=== PATIENT | male | born 1980 | race Caucasian/White ===

== ENCOUNTER 2017-03-04 04:07 | Emergency (ER) | payer BC ==
[2017-03-04 04:31] VITALS: BP 107/81
--- NOTE | 2017-03-04 04:48 | EDM.PDOC ---
ED HPI GENERAL MEDICAL PROBLEM - General Chief Complaint: General Stated Complaint: SORE LEFT CHEST Time Seen by Provider: 03/04/17 04:39 Source of Information: Reports: Patient History Limitations: Reports: No Limitations - History of Present Illness INITIAL COMMENTS - FREE TEXT/NARRATIVE: This patient complains of pain in the area of the sternum. He thinks it might be associated with his port. It's been going on for one day. It's worse when he reaches overhead. Sometimes it's a sharp pulling type sensation he points to the left sternal border and it's the worst place. He denies any fever there is no cough. The port hasn't been used for a couple of weeks. No history of any trauma Left Chest Pain Score (Numeric/FACES): 4 - Related Data Allergies Allergy/AdvReac Type Severity Reaction Status Date / Time No Known Allergies Allergy Verified 03/04/17 04:19 Home Meds: Home Meds Vedolizumab [Entyvio] 300 mg IV ASDIRECTED 02/09/15 [History] Gabapentin 6 ml PO TID 03/04/17 [History] Medical Cannibus 3 - 4 puff INH Q2H PRN 03/04/17 [History] busPIRone [Buspar] 5 mg PO TID 03/04/17 [History] cloNIDine [cloNIDine HCl] 0.2 mg PO TID 03/04/17 [History] Past Medical History Gastrointestinal History: Reports: Bowel Obstruction, Chronic Diarrhea Other Gastrointestinal History: Crohn's. Bowel obstructions multiple times Psychiatric History: Reports: Depression Endocrine/Metabolic History: Reports: Vitamin D Deficiency Hematologic History: Reports: Anemia, Blood Transfusion(s), Iron Deficiency Immunologic History: Reports: Immunosuppression - Infectious Disease History Infectious Disease History: Reports: Chicken Pox - Past Surgical History Other Cardiovascular Surgeries/Procedures: port GI Surgical History: Reports: Appendectomy, Cholecystectomy, Other (See Below) Social & Family History - Family History Cardiac: Reports: [place], Stent GI: Reports: Other (See Below) Other GI Family History: crohns Musculoskeletal: Reports: Arthritis, Fibromyalgia Endocrine/Metabolic: Reports: Diabetes, type II - Tobacco Use Smoking Status *Q: Current Every Day Smoker Years of Tobacco use: 20 Packs/Tins Daily: 0.5 Used Tobacco, but Quit: No Month Tobacco Last Used: february Second Hand Smoke Exposure: No - Caffeine Use Caffeine Use: Reports: Coffee, Soda - Alcohol Use Days Per Week of Alcohol Use: 0 - Recreational Drug Use Recreational Drug Use: No Recreational Drug Type: Reports: Marijuana/Hashish - Living Situation & Occupation Living situation: Reports: , with Spouse, with Family Occupation: Employed ED ROS GENERAL - Review of Systems Review Of Systems: ROS reveals no pertinent complaints other than HPI. ED EXAM, GENERAL - Physical Exam Exam: See Below Exam Limited By: No Limitations General Appearance: Alert, WD/WN Respiratory/Chest: Lungs Clear, Other (There is tenderness along the left sternal border consistent with costochondritis. The area around the port appears to be normal.) Cardiovascular: Normal Peripheral Pulses, Regular Rate, Rhythm Course - Vital Signs Last Recorded V/S: Last Vital Signs Temp 36.1 C 03/04/17 04:31 Pulse 94 03/04/17 04:31 Resp 16 03/04/17 04:31 BP 107/81 03/04/17 04:31 Pulse Ox 96 03/04/17 04:31 Departure - Departure Time of Disposition: 04:46 Disposition: Home, Self-Care 01 Condition: Fair Clinical Impression: Costochondritis - Discharge Information Forms: ED Department Discharge Additional Instructions: You appear to have costochondritis which is inflammation where the cartilage in the bone joints along the left side of your sternum. This is pretty common. There is no specific cause of it although sometimes some minor trauma or exertion can start this. Generally will last a couple of weeks and will go away without treatment. Tylenol and ibuprofen which you can take simultaneously is frequently helpful. See your doctor if your not getting better or at anytime if you feel like you're getting worse.
== END 2017-03-04 05:06 | disposition home or self-care (01) ==
LOC: JP.ED 04:07
DX: M94.0 Chondrocostal junction syndrome [Tietze] (principal); F17.210 Nicotine dependence, cigarettes, uncomplicated; Z90.49 Acquired absence of other specified parts of digestive tract; E11.9 Type 2 diabetes mellitus without complications
CPT/HCPCS: 99283

== ENCOUNTER 2017-10-05 05:16 | Inpatient (IN) | payer BC ==
[2017-10-05] MEDS ORDERED: Celecoxib 200 MG Cap PO ONE (06:00)
[2017-10-05] MEDS ORDERED: Gabapentin 300 MG Cap PO ONE (06:00)
[2017-10-05] MEDS ORDERED: Gabapentin 250 MG/5 ML Solution ML 470 ML Bottle PO ONE (06:00)
[2017-10-05] MEDS ORDERED: Dextrose 5%-Lactated Ringers 1,000 ML IV SCH ×2 (06:00→10:45)
[2017-10-05] MEDS ORDERED: Acetaminophen 500 MG Tab PO ONE (06:00)
[2017-10-05] MEDS ORDERED: Scopolamine 1.5 MG Transdermal Patch TOP SCH (06:00)
[2017-10-05] MEDS ORDERED: Bupivacaine 0.5%/EPINEPHrine 1:200,000 50 ML MDV ONE (06:38)
[2017-10-05] MEDS ORDERED: Meropenem 500 MG SDV ONE (06:39)
[2017-10-05] MEDS ORDERED: Albuterol/Ipratropium 3.0-0.5 MG/3 ML Neb Soln NEB ONE (06:57)
[2017-10-05] MEDS ORDERED: Albuterol/Ipratropium 3.0-0.5 MG/3 ML Neb Soln ONE (07:00)
[2017-10-05] MEDS ORDERED: Propofol 200 MG/20 ML SDV ONE (07:11)
[2017-10-05] MEDS ORDERED: Succinylcholine/Normal Saline 200 MG/10 ML Syringe ONE (07:11)
[2017-10-05] MEDS ORDERED: Dexamethasone 4 MG/ML SDV ONE (07:11)
[2017-10-05] MEDS ORDERED: fentaNYL 250 MCG/5 ML SDV ONE ×2 (07:11→07:36)
[2017-10-05] MEDS ORDERED: Ondansetron 4 MG/2 ML SDV ONE (07:11)
[2017-10-05] MEDS ORDERED: Rocuronium 50 MG/5 ML Vial ONE ×2 (07:11→08:18)
[2017-10-05] MEDS ORDERED: Neostigmine Methylsulfate 1 MG/ML 5 ML Syringe ONE (07:11)
[2017-10-05] MEDS ORDERED: Lidocaine 4% Top Soln LTA 4 ML SYRINGE ONE (07:13)
[2017-10-05] MEDS ORDERED: cefOXitin 2 GM in Premix Bag 1 BAG IV ONE (07:15)
[2017-10-05] MEDS ORDERED: cefOXitin 2 GM in Sodium Chloride 0.9% 50 ML IV ONE (07:15)
[2017-10-05] MEDS ORDERED: Naloxone 0.4 MG/ML SDV IVPUSH PRN (07:23)
[2017-10-05] MEDS ORDERED: HYDROmorphone/Normal Saline 15 MG/30 ML PCA IV PRN (07:23)
[2017-10-05] MEDS ORDERED: Ketamine 500 MG/5 ML MDV IV SCH (07:30)
[2017-10-05] MEDS ORDERED: Ropivacaine 45 ML, Dexamethasone 8 MG, EPINEPHrine 0.4 MG, Sodium Chloride 0.9% 32.6 ML NERVRT SCH ×4 (07:30)
[2017-10-05] MEDS ORDERED: Lidocaine 0.4%/D5W 2 GM/500 ML BAG IV SCH (07:30)
[2017-10-05] MEDS ORDERED: Lidocaine 2% 100 MG/5 ML Syringe IVPUSH ONE (07:30)
[2017-10-05] MEDS ORDERED: Linezolid 200 MG/100 ML Bag IRR ONE (09:09)
[2017-10-05] MEDS ORDERED: hydrOXYzine HCl 100 MG/2 ML SDV IM ONE (09:30)
[2017-10-05] MEDS ORDERED: HYDROmorphone 2 MG Tab PO PRN (10:40)
[2017-10-05] MEDS ORDERED: Ondansetron 4 MG/2 ML SDV IV PRN (10:41)
[2017-10-05] MEDS: Acetaminophen 500 MG Tab PO SCH ×3 (11:51→23:08)
[2017-10-05] MEDS: hydrOXYzine HCl 25 MG Tab PO PRN ×3 (11:51→21:13)
[2017-10-05] MEDS ORDERED: hydrOXYzine HCl 100 MG/2 ML SDV IM PRN (12:00)
[2017-10-05] MEDS: Gabapentin 250 MG/5 ML Solution ML 470 ML Bottle PO SCH ×2 (13:39→20:03)
[2017-10-05] MEDS: ceFAZolin 2 GM in Sodium Chloride 0.9% 50 ML IV SCH ×2 (13:39→20:03)
[2017-10-05] MEDS: Cyclobenzaprine 10 MG Tab PO PRN ×2 (15:11→21:13)
[2017-10-05] MEDS ORDERED: VERIFY SCOP PATCH TOP SCH (16:00)
[2017-10-06] MEDS: Cyclobenzaprine 10 MG Tab PO PRN (04:27)
[2017-10-06] MEDS: hydrOXYzine HCl 25 MG Tab PO PRN (04:27)
[2017-10-06] MEDS: Acetaminophen 500 MG Tab PO SCH (05:47)
[2017-10-06 07:23] VITALS: BP 153/98
[2017-10-06] MEDS: ceFAZolin 2 GM in Sodium Chloride 0.9% 50 ML IV SCH (08:09)
[2017-10-06] MEDS ORDERED: Celecoxib 200 MG Cap PO SCH (09:00)
--- NOTE | 2017-10-07 17:00 | DISCH ---
FINAL DIAGNOSES: 1. Incarcerated umbilical hernia and non-incarcerated incisional hernia. 2. Extensive intra-abdominal adhesions. 3. History of Crohn disease, status post multiple bowel resections. OPERATIVE PROCEDURES: This was done on 10/05/2017, diagnostic laparoscopy with lysis of extensive adhesions and: 1. Repair of incarcerated umbilical and non-incarcerated incisional hernias with mesh. 2. Repair of area of deserosalization of small bowel. 3. Placement of Interceed mesh to displace small bowel from pelvic and abdominal wall to limit recurrent adhesion formation. HOSPITAL COURSE: This is a 37-year-old male with longstanding Crohn disease, who is status post 3 previous surgical procedures done at [facility] and presently status, distal small bowel resection with anastomosis to the descending colon with a colon proximal having been previously resected. He presented now with an increasingly symptomatic hernia in the umbilical area. After a preoperative evaluation and discussion, he wished to proceed with a repair and mesh. This was accomplished on the day of admission via laparoscopic approach. He had quite extensive small bowel adhesions along the previous incision line. These were carefully taken down with no enterotomies. There were some areas that were slightly deserosalized. These were reinforced with some sutures as well as fibrin sealant. The patient also, in addition to the umbilical hernia, had an incisional hernia located in the lower half of the incision, i.e. in the area inferior to the umbilicus. The entire of the incision and hernias were covered by the mesh. Clinically, he has done well and will be discharged home today. He will be continuing his standard Entyvio injections every 30 days for the Crohn disease. DISCHARGE MEDICATIONS: He will be discharged home today on; 1. Tylenol 1 gram q.i.d. x5 days and q.i.d. p.r.n. 2. Celebrex 200 mg p.o. daily x7 days, #7. 3. Atarax 100 mg p.o. q.6 hours p.r.n. pain or muscle spasm, #30, with refill x1. DISCHARGE INSTRUCTIONS: He will be instructed in terms of maintaining focussed pressure over the umbilical area during the next 2 weeks with an abdominal binder. FOLLOWUP: With Dr. London at [facility] on 10/17/2017.
--- NOTE | 2017-10-10 08:28 | OR ---
DATE OF PROCEDURE: 10/05/2017 PREOPERATIVE DIAGNOSIS: Umbilical hernia. POSTOPERATIVE DIAGNOSES: 1. Incarcerated umbilical hernia. 2. Incarcerated incisional hernia. 3. Extensive small bowel adhesions to abdominal wall with focal deserosalization of small bowel, status post takedown of adhesions. OPERATIVE PROCEDURES: Diagnostic laparoscopy with lysis of extensive adhesions: 1. Repair of incarcerated umbilical hernia with mesh (16183). 2. Repair of the incarcerated incisional hernia with mesh (92411). 3. Repair of deserosalization of small bowel (95732). 4. Placement of Interceed mesh to limit postoperative recurrent adhesion formation between pelvic and abdominal wall and the underlying small bowel (98270). ANESTHESIA: General. WET SUIT GLUER: Jenn Gordillo PA-C and DONNA Joy3. INDICATIONS FOR PROCEDURE: This is a 37-year-old presenting with increasingly symptomatic umbilical hernia located in the middle portion of the midline incision. The patient is status post nearly subtotal colectomy for Crohn disease with distal small bowel having been resected and the colon from the cecum to the descending colon have also been previously resected. Plan is to proceed with a laparoscopy, laparotomy if necessary, and repair of the hernia with mesh. Potential risks including bleeding, infection, injury to underlying viscera, problems with the mesh becoming infected or the hernia recurring along with remote possibility of cardiopulmonary, septic, or hemorrhagic complications leading to were discussed, and the patient wishes to proceed. DETAILS OF PROCEDURE: The patient was taken to the operating room. After general endotracheal anesthesia was induced, a Campa catheter was inserted. Initially, the abdominal wall was examined with ultrasound. Much of the abdominal wall had obvious some small bowel directly underlying it, however, in the left upper quadrant of some left subcostal area, there appeared to be no small bowel there and we therefore selected this site for the subsequent initial trocar placement. The abdomen was then prepped and draped. In the mid left subcostal area, a 12 mm trocar was then placed without difficulty and the peritoneal cavity inflated to 15 mmHg pressure with CO2. Eventually, three additional 5 mm trocars were placed, 1 in the epigastrium and 2 in the left mid and lower abdomen. The patient was noted to have a long roll of densely adherent small bowel from previous incision, for the most part a plane could be established between the small bowel and the abdominal wall at 2 points there was a small area of deserosalization pointing down the bowel and two other portions of these areas of adhesion takedown the underlying peritoneum and posterior rectus sheath were excised along with the attached underlying small bowel to allow displacement of the small bowel from the area of adhesions without dividing the bowel itself. Once this was all taken down which was fairly long tedious approach mostly with sharp dissection, the small bowel was inspected. Two areas of deserosalization were noted. These were reinforced with 3-0 Vicryl seromuscular stitch along with fibrin sealant. No omentum was available for placement over those areas. At that point, a Ventralight ST mesh was selected after measuring out the areas of herniation. The patient had some incarcerated preperitoneal fat within the umbilical hernia. This was excised. The patient also had a diffuse hernia along the lower aspect of the incision, which was not incarcerated. The Ventralight ST mesh measuring 15 x 25 cm was selected and at the long axis ends of the mesh, 2-0 Vicryl sutures were placed and the mesh was placed in the antibiotic-containing saline solution. The mesh was then rolled up and placed in intraperitoneal location at premarked locations. The sutures were then pulled up through the abdominal wall through small stab wounds with the long axis of the mesh being in the vertical midline. The balloon catheter was then pulled through additional stab wound over the mid portion of the mesh and the balloon catheter inflated pushing the mesh up against the abdominal wall. At that point, circumferential absorbable tacking screws were placed into the mesh and to the abdominal wall and once that was completed, one additional row of absorbable tacking screws were placed around the area of the umbilical hernia to affix the mesh in position at that level. The patient was felt to be at high risk for recurrent pelvic and abdominal adhesion formation with the mesh placement as well as the takedown of the previous adhesions and with history of Crohn disease, certainly risk for needing additional laparotomies over time, given this two segments of the Interceed mesh was placed underneath the mesh and from there into the pelvis, thus displacing the small bowel from the mesh in the pelvic guillen to limit recurrent adhesion formation. At that point, no further problems noted. The abdomen was irrigated with an antibiotic-containing saline solution and the trocars removed. The fascia at the 12 mm site was closed with 0 Vicryl stitch and skin with a 4-0 Vicryl skin stitch. Dressing was applied. The patient was taken to the recovery room in satisfactory condition. Physician retail assistant, Jenn Gordillo, played an essential role in assisting in this case, helping to position the patient, retract structures as needed, as well as suturing and cutting sutures when indicated. Her presence improved patient safety and decreased operative time. Jerrod London MD /[id number]
== END 2017-10-06 09:00 | disposition still patient (30) | DRG 227 ==
LOC: JP.SDS 05:16 → JP.MS 05:16 → EDSTATUS 08:30 → JP.MS 09:50
PROVIDERS: ADMIT Surgery; ATTEND Surgery
PROC: 0WUF4JZ Supplement Abdominal Wall with Synthetic Substitute, Percutaneous Endoscopic Approach (ICD-10-PCS; principal; 2017-10-05)
PROC: 3E0M45Z Introduction of Adhesion Barrier into Peritoneal Cavity, Percutaneous Endoscopic Approach (ICD-10-PCS; 2017-10-05)
PROC: 0WUF4JZ Supplement Abdominal Wall with Synthetic Substitute, Percutaneous Endoscopic Approach (ICD-10-PCS; 2017-10-05)
PROC: 0DN84ZZ Release Small Intestine, Percutaneous Endoscopic Approach (ICD-10-PCS; 2017-10-05)
DX: K42.0 Umbilical hernia with obstruction, without gangrene (principal); K43.2 Incisional hernia without obstruction or gangrene; K66.0 Peritoneal adhesions (postprocedural) (postinfection); Z90.49 Acquired absence of other specified parts of digestive tract; K50.90 Crohn's disease, unspecified, without complications
CPT/HCPCS: 36415; 80053; 83735; 84100; 85027; 88302; 94762; A9270-GY; C1781; J0171; J0690; J0694; J1100; J2001; J2020; J2185; J2405; J2704; J2795; J3010; J3410; J7030; J7042; J7050; J7620

== ENCOUNTER 2018-02-12 14:00 | Emergency (ER) | payer BC ==
[2018-02-12] MEDS ORDERED: Aspirin 81 MG Tab.Chew PO ONE (14:46)
--- NOTE | 2018-02-12 14:51 | EDM.PDOC ---
ED HPI GENERAL MEDICAL PROBLEM - General Chief Complaint: Chest Pain Stated Complaint: CHEST TIGHTNESS/SOB Time Seen by Provider: 02/12/18 14:40 Source of Information: Reports: Patient, RN Notes Reviewed History Limitations: Reports: No Limitations - History of Present Illness INITIAL COMMENTS - FREE TEXT/NARRATIVE: 38-year-old gentleman presents to the emergency department with complaint of chest pain, he states he's had pain for 24 hours it will wax and wane initially came on at rest does get with with exertion rates the pain 6 out of 10 when he rests it does resolve. Has shortness of breath no nausea vomiting no diaphoresis , past family history positive for father myocardial infarction age 42 and no personal history of dyslipidemia or hypertension Left Chest Pain Score (Numeric/FACES): 4 - Related Data Allergies Allergy/AdvReac Type Severity Reaction Status Date / Time No Known Allergies Allergy Verified 02/12/18 14:16 Home Meds: Home Meds Medical Cannibus 3 - 4 puff INH Q2H PRN 03/04/17 [History] Past Medical History Gastrointestinal History: Reports: Bowel Obstruction, Chronic Diarrhea Other Gastrointestinal History: Crohn's. Bowel obstructions multiple times Psychiatric History: Reports: Depression Endocrine/Metabolic History: Reports: Vitamin D Deficiency Hematologic History: Reports: Anemia, Blood Transfusion(s), Iron Deficiency Immunologic History: Reports: Immunosuppression - Infectious Disease History Infectious Disease History: Reports: Chicken Pox - Past Surgical History GI Surgical History: Reports: Appendectomy, Cholecystectomy, Hernia Repair/Other , Other (See Below) Social & Family History - Family History Family Medical History: Noncontributory Cardiac: Reports: [place], Stent GI: Reports: Other (See Below) Other GI Family History: crohns Musculoskeletal: Reports: Arthritis, Fibromyalgia Endocrine/Metabolic: Reports: Diabetes, type II - Tobacco Use Smoking Status *Q: Heavy Tobacco Smoker Years of Tobacco use: 20 Packs/Tins Daily: 1 - Caffeine Use Caffeine Use: Reports: Coffee, Energy Drinks - Alcohol Use Days Per Week of Alcohol Use: 2 Number of Drinks Per Day: 7 Total Drinks Per Week: 14 - Recreational Drug Use Recreational Drug Use: Yes - Living Situation & Occupation Living situation: Reports: , with Spouse, with Family Occupation: Employed ED ROS GENERAL - Review of Systems Review Of Systems: See Below Constitutional: Reports: No Symptoms HEENT: Reports: No Symptoms Respiratory: Reports: Shortness of Breath Cardiovascular: Reports: Chest Pain GI/Abdominal: Reports: No Symptoms : Reports: No Symptoms Musculoskeletal: Reports: No Symptoms Skin: Reports: No Symptoms ED EXAM, GENERAL - Physical Exam Exam: See Below Free Text/Narrative:: General: Male, not in any distress, alert and oriented x3 HEENT: head is atraumatic normocephalic, eyes pupils equal round reactive to light, sclera clear no conjunctivitis appreciated. Ears tympanic membranes clear and schafer landmarks and light reflex are present bilaterally canals are clear. Nose no septal deviation, nares are clear, no blood present. Mouth mucosa is moist and pink no erythema or exudate noted in soft palate, tongue is midline uvula is midline, dentition is intact. Neck: Supple no thyromegaly no tracheal deviation. Nodes: Cervical nodes subclavicular nodes nontender no palpable lymphadenopathy noted. Lungs: clear to auscultation bilaterally with symmetrical respirations, no adventitious noise appreciated. CV: Regular rate and rhythm S1 and S2 appreciated no murmurs rubs or gallops noted. Abdomen: Soft, nontender, no palpable masses or organomegaly appreciated, no distention no guarding bowel sounds are present, Neuro: Cranial nerves II through XII grossly intact Skin: Warm and dry, intact Extremities: No lower extremity edema appreciated, Course - Vital Signs Last Recorded V/S: Last Vital Signs Temp 98.6 F 02/12/18 14:14 Pulse 93 02/12/18 15:03 Resp 18 02/12/18 15:03 BP 134/96 H 02/12/18 15:03 Pulse Ox 96 02/12/18 15:03 - Orders/Labs/Meds Orders: Active Orders 24 hr Category Date Time Status Cardiac Monitoring [RC] .As Directed Care 02/12/18 14:46 Active EKG Documentation Completion [RC] ASDIRECTED Care 02/12/18 14:49 Active EKG 12 Lead [EK] Stat Ther 02/12/18 14:49 Ordered Labs: Laboratory Tests 02/12/18 02/12/18 Range/Units 14:53 14:53 WBC 12.4 H (4.5-11.0) K/uL RBC 4.87 (4.30-5.90) M/uL Hgb 15.0 (12.0-15.0) g/dL Hct 43.2 (40.0-54.0) % MCV 89 (80-98) fL MCH 31 (27-31) pg MCHC 35 (32-36) % Plt Count 339 (150-400) K/uL Neut % (Auto) 72 H (36-66) % Lymph % (Auto) 19 L (24-44) % [facility] % (Auto) 6 (2-6) % Eos % (Auto) 3 (2-4) % Baso % (Auto) 0 (0-1) % Sodium 137 L (140-148) mmol/L Potassium 3.5 L (3.6-5.2) mmol/L Chloride 102 (100-108) mmol/L Carbon Dioxide 27 (21-32) mmol/L Anion Gap 11.5 (5.0-14.0) mmol/L BUN 15 (7-18) mg/dL Creatinine 1.3 (0.8-1.3) mg/dL Est Cr Clr Drug Dosing 82.91 mL/min Estimated GFR (MDRD) > 60 (>60) Glucose 94 (74-106) mg/dL Calcium 8.5 (8.5-10.1) mg/dL Total Bilirubin 0.7 (0.2-1.0) mg/dL AST 41 H (15-37) U/L ALT 62 (12-78) U/L Alkaline Phosphatase 120 H (46-116) U/L Troponin I < 0.017 (0.000-0.056) ng/mL Total Protein 7.1 (6.4-8.2) g/dL Albumin 3.4 (3.4-5.0) g/dL Globulin 3.7 H (2.3-3.5) g/dL Albumin/Globulin Ratio 0.9 L (1.2-2.2) Meds: Medications Discontinued Medications Generic Name Dose Route Start Last Admin Trade Name Freq PRN Reason Stop Dose Admin Aspirin 324 mg 02/12/18 14:46 02/12/18 15:29 Aspirin PO 02/12/18 14:47 324 mg ONETIME ONE Administration Departure - Departure Time of Disposition: 15:47 Disposition: Home, Self-Care 01 Condition: Good Clinical Impression: Atypical chest pain Referrals: Hussain Haas MD [Primary Care Provider] - Forms: ED Department Discharge Additional Instructions: Try Tylenol or ibuprofen as needed for pain control, please keep your follow-up appointment with your primary care provider and discussed the possibility of stress test in the future. Please call return to the emergency department worsening of symptoms - My Orders Last 24 Hours: My Active Orders 02/12/18 14:46 Cardiac Monitoring [RC] .As Directed 02/12/18 14:49 EKG Documentation Completion [RC] ASDIRECTED EKG 12 Lead [EK] Stat - Assessment/Plan Last 24 Hours: My Active Orders 02/12/18 14:46 Cardiac Monitoring [RC] .As Directed 02/12/18 14:49 EKG Documentation Completion [RC] ASDIRECTED EKG 12 Lead [EK] Stat Plan: Assessment Acuity = acute Site and laterality = atypical chest pain complicated patient with known history of chronic pain syndrome Etiology = unclear etiology Manifestations = none Location of injury = Home Lab values = CBC, CMP, troponin all negative EKG demonstrates normal sinus rhythm, chest x-ray shows no acute cardiopulmonary process Plan His heart score is 1, I did review options with him as well as his risk factors which include family history and his smoking, plan is to follow-up with his primary care which he has a couple weeks and discussed the possibility of a stress test in the future, with any worsening conditions he will return to the emergency department This note was dictated using [employer] voice recognition software please call with any questions on syntax or grammar.
[2018-02-12 15:04] VITALS: BP 134/96
--- NOTE | 2018-02-12 15:14 | CR ---
CHEST: 2 view CLINICAL HISTORY:Chest pain COMPARISON:11/21/2015 FINDINGS: Patient has an Gwmzvo-[id number] catheter from left subclavian approach. Tip is in the superio r vena cava. Heart and pulmonary vascularity are normal no infiltrate effusion or pneumothorax is see n. Impression: No acute cardiopulmonary process Gwhvul-k-[id number] catheter in place.
== END 2018-02-12 16:12 | disposition home or self-care (01) ==
LOC: JP.ED 14:00
DX: R07.89 Other chest pain (principal); F17.210 Nicotine dependence, cigarettes, uncomplicated
CPT/HCPCS: 36415; 71046; 71046-26; 80053; 84484; 85025; 93005; 99285-25; A9270-GY

== ENCOUNTER 2019-07-01 21:40 | Emergency (ER) | payer SELFPAY ==
[2019-07-01 21:56] VITALS: BP 121/87; PULSE 88
[2019-07-01] MEDS ORDERED: Tetracaine HCl/PF 0.5% 4 ML Bottle EYELF ONE (21:58)
--- NOTE | 2019-07-01 22:35 | EDM.PDOC ---
ED HPI GENERAL MEDICAL PROBLEM - General Chief Complaint: ENT Problem Stated Complaint: METAL IN EYE Time Seen by Provider: 07/01/19 22:27 Source of Information: Reports: Patient History Limitations: Reports: No Limitations - History of Present Illness INITIAL COMMENTS - FREE TEXT/NARRATIVE: pt was grinding with a full headpiec which came up and the metal came up into both eyes. He had severe pain in the eyes worse in the rt then the left. He did irrigate the eyes prior to arrival. Onset: Today, Sudden Duration: Hour(s): Location: Reports: Face Associated Symptoms: Reports: No Other Symptoms, Other (pt has a old corneal abrasion which scarred on the left eye. ) - Related Data Allergies Allergy/AdvReac Type Severity Reaction Status Date / Time No Known Allergies Allergy Verified 02/12/18 14:16 Home Meds: Home Meds Medical Cannibus 3 - 4 puff INH Q1H PRN 03/04/17 [History] Past Medical History Gastrointestinal History: Reports: Bowel Obstruction, Chronic Diarrhea Other Gastrointestinal History: Crohn's. Bowel obstructions multiple times Psychiatric History: Reports: Depression Endocrine/Metabolic History: Reports: Vitamin D Deficiency Hematologic History: Reports: Anemia, Blood Transfusion(s), Iron Deficiency Immunologic History: Reports: Immunosuppression - Infectious Disease History Infectious Disease History: Reports: Chicken Pox - Past Surgical History Other Cardiovascular Surgeries/Procedures: port GI Surgical History: Reports: Appendectomy, Cholecystectomy, Hernia Repair/Other , Other (See Below) Other GI Surgeries/Procedures: multiple abd surgeries Dermatological Surgical History: Reports: None Social & Family History - Family History Family Medical History: Noncontributory Cardiac: Reports: [place], Stent GI: Reports: Other (See Below) Other GI Family History: crohns Musculoskeletal: Reports: Arthritis, Fibromyalgia Endocrine/Metabolic: Reports: Diabetes, type II - Tobacco Use Smoking Status *Q: Current Some Day Smoker Years of Tobacco use: 20 Packs/Tins Daily: 1.5 - Caffeine Use Caffeine Use: Reports: Soda - Alcohol Use Days Per Week of Alcohol Use: 3 Number of Drinks Per Day: 4 Total Drinks Per Week: 12 Date of Last Drink: 07/01/19 - Recreational Drug Use Recreational Drug Use: No - Living Situation & Occupation Living situation: Reports: , with Spouse, with Family Occupation: Employed ED ROS ENT - Review of Systems Review Of Systems: See Below Constitutional: Reports: No Symptoms HEENT: Reports: Other (painful eyues bilateral. ) Respiratory: Reports: No Symptoms Cardiovascular: Reports: No Symptoms Endocrine: Reports: No Symptoms GI/Abdominal: Reports: No Symptoms : Reports: No Symptoms Musculoskeletal: Reports: No Symptoms Skin: Reports: No Symptoms ED EXAM, ENT - Physical Exam Exam: See Below Text/Narrative:: pt arrived with pain in both eyes worse on the rt then the left. He has an old injury to his left eye. Exam Limited By: No Limitations General Appearance: Alert, Anxious, Moderate Distress, Other (pupils are equal and reactive. both eyes look very injected. Tetracaine was inserted in both eyes. Pt did get good relief with that. He was examined and no metal could be seen in either eye. The lid was flipped on both eyes and there was no foreign body. The eye was stained and there was old scarring over the cornea . He has a corneal abrasion on the lower pole of the conjuntivia bilateral. ) Ears: Normal TMs Nose: Normal Inspection Mouth/Throat: Normal Inspection Head: Atraumatic Neck: Normal Inspection Respiratory/Chest: No Respiratory Distress Cardiovascular: Regular Rate, Rhythm GI/Abdominal: Soft, Non-Tender (Male) Exam: Deferred Rectal (Males) Exam: Deferred Back: Normal Inspection Extremities: Normal Inspection Course - Vital Signs Last Recorded V/S: Last Vital Signs Temp 36.2 C 07/01/19 21:54 Pulse 88 07/01/19 21:54 Resp 16 07/01/19 21:54 BP 121/87 07/01/19 21:54 Pulse Ox 98 07/01/19 21:54 - Orders/Labs/Meds Meds: Medications Discontinued Medications Generic Name Dose Route Start Last Admin Trade Name Love PRN Reason Stop Dose Admin Tetracaine HCl 1 ml 07/01/19 21:58 07/01/19 22:08 Tetracaine 0.5% Steri-Unit Justina EYELF 07/01/19 21:59 1 ml ASDIRECTED ONE Administration Departure - Departure Time of Disposition: 22:38 Disposition: Home, Self-Care 01 Condition: Fair Clinical Impression: Conjunctival abrasion, Scar of cornea of left eye - Discharge Information Referrals: PCP,None [Primary Care Provider] - Forms: ED Department Discharge Care Plan Goals: cool pack to the eyes, acular eye drops tid for pain, gentamycin eye drops qid. rtc if problems.
[2019-07-01] MEDS ORDERED: Ketorolac 0.5% Ophth Soln 3 ML Bottle EYELF SCH (22:51)
[2019-07-01] MEDS ORDERED: Ketorolac 0.5% Ophth Soln 3 ML Bottle EYERT ONE (22:53)
== END 2019-07-01 23:20 | disposition home or self-care (01) ==
LOC: JP.ED 21:40
DX: S05.02XA Injury of conjunctiva and corneal abrasion without foreign body, left eye, initial encounter (principal); S05.01XA Injury of conjunctiva and corneal abrasion without foreign body, right eye, initial encounter; H17.9 Unspecified corneal scar and opacity; F17.210 Nicotine dependence, cigarettes, uncomplicated; X58.XXXA Exposure to other specified factors, initial encounter; Y93.89 Activity, other specified
CPT/HCPCS: 99282; A9270

== ENCOUNTER 2020-01-18 18:49 | Emergency (ER) | payer MEDICAID ==
[2020-01-18 19:36] VITALS: BP 122/71; PULSE 70
[2020-01-18] MEDS ORDERED: Tetracaine HCl/PF 0.5% 4 ML Bottle EYELF ONE (19:43)
--- NOTE | 2020-01-18 19:54 | EDM.PDOC ---
ED HPI GENERAL MEDICAL PROBLEM - General Chief Complaint: Eye Problems Stated Complaint: OBJECT IN LEFT EYE Time Seen by Provider: 01/18/20 19:43 Source of Information: Reports: Patient, Old Records History Limitations: Reports: No Limitations - History of Present Illness INITIAL COMMENTS - FREE TEXT/NARRATIVE: Was using a blower and something went into his L eye. Has pain. Vision normal. Is UTD on tetanus. He says he can see something in that eye, but cannot get it out. Onset: Today, Sudden Onset Date: 01/18/20 Duration: Minutes:, Constant Location: Reports: Face (L eye) Quality: Reports: Sharp Severity: Moderate Improves with: Reports: Other (not blinking) Worsens with: Reports: Movement (blinking) Context: Reports: Trauma Associated Symptoms: Reports: No Other Symptoms Treatments PATTERNMAKER: Reports: Other (see below) (none) Left Eye Pain Score (Numeric/FACES): 2 - Related Data Allergies Allergy/AdvReac Type Severity Reaction Status Date / Time No Known Allergies Allergy Verified 01/18/20 19:43 Home Meds: Home Meds Medical Cannibus 3 - 4 puff INH Q1H PRN 03/04/17 [History] Past Medical History Gastrointestinal History: Reports: Bowel Obstruction, Chronic Diarrhea Other Gastrointestinal History: Crohn's. Bowel obstructions multiple times Psychiatric History: Reports: Depression Endocrine/Metabolic History: Reports: Vitamin D Deficiency Hematologic History: Reports: Anemia, Blood Transfusion(s), Iron Deficiency Immunologic History: Reports: Immunosuppression - Infectious Disease History Infectious Disease History: Reports: C-Difficile, Chicken Pox - Past Surgical History Other Cardiovascular Surgeries/Procedures: port GI Surgical History: Reports: Appendectomy, Cholecystectomy, Hernia Repair/Other , Other (See Below) Other GI Surgeries/Procedures: multiple abd surgeries Social & Family History - Family History Family Medical History: Noncontributory Cardiac: Reports: [place], Stent GI: Reports: Other (See Below) Other GI Family History: crohns Musculoskeletal: Reports: Arthritis, Fibromyalgia Endocrine/Metabolic: Reports: Diabetes, type II - Tobacco Use Smoking Status *Q: Current Every Day Smoker Years of Tobacco use: 20 Packs/Tins Daily: 1 Used Tobacco, but Quit: No Second Hand Smoke Exposure: Yes - Caffeine Use Caffeine Use: Reports: Soda - Recreational Drug Use Recreational Drug Use: No - Living Situation & Occupation Living situation: Reports: , with Spouse, with Family Occupation: Employed ED ROS GENERAL - Review of Systems Review Of Systems: Comprehensive ROS is negative, except as noted in HPI. Constitutional: Reports: No Symptoms HEENT: Reports: Eye Pain (left). Denies: Eye Discharge, Vision Change ED EXAM GENERAL W FULL EYE - Physical Exam Exam: See Below Exam Limited By: No Limitations General Appearance: Alert, WD/WN, No Apparent Distress Eye Exam: Left Eye: Foreign Body (Over cornea just medial to the pupil), Bilateral Eye: PERRL Eyelids: Bilateral: Normal Appearance Conjunctiva & Sclera: Bilateral: Normal Appearance Cornea Exam: Left: Foreign Body Extraocular Movements: Bilateral: Intact Pupils: Normal Accommodation Pupillary Size: Bilateral: 3 mm Ears: Hearing Grossly Normal Nose: Normal Inspection, No Blood Throat/Mouth: Normal Voice, No Airway Compromise Head: Atraumatic, Normocephalic ED EYE w/ Add Procedure - Eye Procedure Alcaine Drops Administered: Yes Eye FB Removal: Other (removal with Algerbrush including rust ring) Course - Vital Signs Last Recorded V/S: Last Vital Signs Temp 35.5 C L 01/18/20 19:35 Pulse 70 01/18/20 19:35 Resp 16 01/18/20 19:35 BP 122/71 01/18/20 19:35 Pulse Ox 98 01/18/20 19:35 - Orders/Labs/Meds Orders: Active Orders 24 hr Category Date Time Status Tetracaine HCl/PF [Tetracaine 0.5% Steri-Unit Justina] Med 01/18/20 19:43 Once 1 ml EYELF ASDIRECTED ONE Departure - Departure Time of Disposition: 20:00 Disposition: Home, Self-Care 01 Condition: Fair Clinical Impression: Corneal rust ring of left eye Eye foreign body Qualifiers: Encounter type: initial encounter Laterality: left Qualified Code(s): T15.92XA - Foreign body on external eye, part unspecified, left eye, initial encounter - Discharge Information *PRESCRIPTION DRUG MONITORING PROGRAM REVIEWED*: No *COPY OF PRESCRIPTION DRUG MONITORING REPORT IN PATIENT VINNY: No Instructions: Eye Foreign Body, [id number] Referrals: Hussain Haas MD [Primary Care Provider] - Additional Instructions: Rest in a dark room tonight. No rubbing your left eye. Take ibuprofen 600 mg every 6 hrs with food for pain relief. Add [place] for added relief as needed. Apply antibiotic eye drops as directed. Recheck if not better by Sunday. Sepsis Event Note - Focused Exam Vital Signs: Vital Signs Temp Pulse Resp BP Pulse Ox 01/18/20 19:35 35.5 C L 70 16 122/71 98 Date Exam was Performed: 01/18/20 Time Exam was Performed: 19:43 - My Orders Last 24 Hours: My Active Orders 01/18/20 19:43 Tetracaine HCl/PF [Tetracaine 0.5% Steri-Unit Justina] 1 ml EYELF ASDIRECTED ONE - Assessment/Plan Last 24 Hours: My Active Orders 01/18/20 19:43 Tetracaine HCl/PF [Tetracaine 0.5% Steri-Unit Justina] 1 ml EYELF ASDIRECTED ONE
== END 2020-01-18 20:10 | disposition home or self-care (01) ==
LOC: JP.ED 18:49
DX: T15.02XA Foreign body in cornea, left eye, initial encounter (principal)
CPT/HCPCS: 65220; 99283

== ENCOUNTER 2020-06-27 01:18 | Emergency (ER) | payer MEDICAID ==
[2020-06-27 01:48] VITALS: BP 159/101; PULSE 95
--- NOTE | 2020-06-27 03:02 | EDM.PDOC ---
ED HPI GENERAL MEDICAL PROBLEM - General Chief Complaint: Upper Extremity Injury/Pain Stated Complaint: L WRIST Time Seen by Provider: 06/27/20 01:45 Source of Information: Reports: Patient History Limitations: Reports: Intoxication - History of Present Illness INITIAL COMMENTS - FREE TEXT/NARRATIVE: Patient presents for evaluation of injury to his left arm tonight. He had had some alcohol this evening and when walking outside, tripped and fell to the ground landing on his left hand and arm. The hand wrist and forearm are uncomfortable and he was concerned he might have broken something. He has no other injuries from this fall. Onset: Sudden Duration: Hour(s): (1.5 hours prior to arrival.) Location: Reports: Upper Extremity, Left Quality: Reports: Sharp, Stabbing Severity: Moderate Improves with: Reports: None Worsens with: Reports: Movement Context: Reports: Trauma Left Wrist Pain Score (Numeric/FACES): 6 - Related Data Allergies Allergy/AdvReac Type Severity Reaction Status Date / Time No Known Allergies Allergy Verified 06/27/20 01:42 Home Meds: Home Meds Medical Cannibus 3 - 4 puff INH Q1H PRN 03/04/17 [History] Past Medical History Gastrointestinal History: Reports: Bowel Obstruction, Chronic Diarrhea Other Gastrointestinal History: Crohn's. Bowel obstructions multiple times Psychiatric History: Reports: Depression Endocrine/Metabolic History: Reports: Vitamin D Deficiency Hematologic History: Reports: Anemia, Blood Transfusion(s), Iron Deficiency Immunologic History: Reports: Immunosuppression - Infectious Disease History Infectious Disease History: Reports: C-Difficile, Chicken Pox - Past Surgical History Other Cardiovascular Surgeries/Procedures: port GI Surgical History: Reports: Appendectomy, Cholecystectomy, Hernia Repair/Other, Other (See Below) Other GI Surgeries/Procedures: multiple abd surgeries Dermatological Surgical History: Reports: None Social & Family History - Family History Family Medical History: Noncontributory Cardiac: Reports: [place], Stent GI: Reports: Other (See Below) Other GI Family History: crohns Musculoskeletal: Reports: Arthritis, Fibromyalgia Endocrine/Metabolic: Reports: Diabetes, type II - Tobacco Use Tobacco Use Status *Q: Current Every Day Tobacco User Years of Tobacco use: 24 Packs/Tins Daily: 0.5 - Caffeine Use Caffeine Use: Reports: Soda - Recreational Drug Use Recreational Drug Use: No - Living Situation & Occupation Living situation: Reports: , with Spouse, with Family Occupation: Employed Review of Systems - Review of Systems Review Of Systems: Comprehensive ROS is negative, except as noted in HPI. ED EXAM, GENERAL - Physical Exam Exam: See Below Free Text/Narrative:: This is an adult male lying supine on the cart in room 7. Exam Limited By: No Limitations General Appearance: Alert, Mild Distress Respiratory/Chest: Lungs Clear Cardiovascular: Regular Rate, Rhythm Peripheral Pulses: 3+: Radial (L), Radial (R) Extremities: Arm Pain (Pain along the radius and ulna from the mid forearm distally to the carpal bones. Slightly more tender on the lateral aspect of the forearm. There is some soft tissue edema. The metacarpals are uniformly mildly uncomfortable. Fingers are nontender.), Limited Range of Motion (Pain with manipulation of the left wrist region.) Course - Vital Signs Last Recorded V/S: Last Vital Signs Temp 35.9 C L 06/27/20 01:46 Pulse 95 06/27/20 01:46 Resp 16 06/27/20 01:46 BP 159/101 H 06/27/20 01:46 Pulse Ox 98 06/27/20 01:46 - Orders/Labs/Meds Orders: Active Orders 24 hr Category Date Time Status Forearm 2V Lt [CR] Stat Exams 06/27/20 01:56 Ordered Hand Comp Min 3V Lt [CR] Stat Exams 06/27/20 01:55 Ordered - Re-Assessments/Exams Free Text/Narrative Re-Assessment/Exam: 06/27/20 03:14 I returned to the room to discuss imaging findings and he was asleep with his left forearm resting over the rail of the cart. I reviewed imaging studies of hand and forearm with the patient which showed no fracture. I recommend ice applications to painful areas 20 minutes off and on. Ibuprofen 800 mg 3 times a day. Recheck with primary care if no improvement in 7 to 10 days. Return to ER if feeling worse in any way. Departure - Departure Time of Disposition: 03:02 Disposition: Home, Self-Care 01 Clinical Impression: Contusion of left forearm, initial encounter Contusion of hand, left Qualifiers: Encounter type: initial encounter Qualified Code(s): S60.222A - Contusion of left hand, initial encounter - Discharge Information Instructions: Hand Contusion Referrals: Hussain Haas MD [Primary Care Provider] - Forms: ED Department Discharge, ED Return to Work/School Form Additional Instructions: Apply ice packs to painful areas 20 minutes off and on. Ibuprofen 800 mg 3 times a day as needed for pain. If not feeling better in 7 to 10 days, recheck with primary care. Return to ER if feeling worse in any way. Sepsis Event Note (ED) - Evaluation Sepsis Screening Result: No Definite Risk - Focused Exam Vital Signs: Vital Signs Temp Pulse Resp BP Pulse Ox 06/27/20 01:46 35.9 C L 95 16 159/101 H 98 - My Orders Last 24 Hours: My Active Orders 06/27/20 01:55 Hand Comp Min 3V Lt [CR] Stat 06/27/20 01:56 Forearm 2V Lt [CR] Stat - Assessment/Plan Last 24 Hours: My Active Orders 06/27/20 01:55 Hand Comp Min 3V Lt [CR] Stat 06/27/20 01:56 Forearm 2V Lt [CR] Stat
--- NOTE | 2020-06-28 09:59 | CR ---
Hand Comp Min 3V Lt, Forearm 2V Lt CLINICAL HISTORY: Trauma FINDINGS: There is no acute fracture or dislocation of the hand. Impression: Negative , Forearm 2V Lt CLINICAL HISTORY: Trauma FINDINGS: There is no acute fracture within the forearm. IMPRESSION: Negative left forearm.
== END 2020-06-27 04:22 | disposition home or self-care (01) ==
LOC: JP.ED 01:18
DX: S60.222A Contusion of left hand, initial encounter (principal); S50.12XA Contusion of left forearm, initial encounter; Z90.49 Acquired absence of other specified parts of digestive tract; F17.210 Nicotine dependence, cigarettes, uncomplicated; W17.89XA Other fall from one level to another, initial encounter; Y93.01 Activity, walking, marching and hiking
CPT/HCPCS: 73090-26-LT; 73090-LT; 73130-26-LT; 73130-LT; 99283